=== PATIENT | male | born 1980 | race Caucasian/White ===

== ENCOUNTER 2019-01-03 19:10 | Emergency (ER) | payer SELFPAY ==
[~2019-01-03] VITALS: Ht 170.2 cm; Wt 72.6 kg
[2019-01-03 19:10] VITALS: BP 123/77
--- NOTE | 2019-01-03 22:35 | PHYS DOC ---
Past Medical History Past Medical History: No Pertinent History Past Surgical History: Other Additional Past Surgical Histo: R LEG BELOW KNEE AMPUTATION Alcohol Use: None Drug Use: None Adult General Chief Complaint Chief Complaint: LOWER EXT PAIN HPI HPI Patient is a 38 year old homeless male, who presents to the emergency department with complaints of redness to his right below the knee amputation stump. Patient states that he has been hitchhiking from [place] and has noticed that the skin on his stump is irritated and red. He denies any drainage from the site, fevers, numbness, tingling, or injury. He rates the pain a 10 out of 10 on the pain scale, there are no alleviating or exacerbating factors. Review of Systems Review of Systems Constitutional: Denies fever or chills [] Musculoskeletal: Denies back pain or joint pain [] Integument: See history of present illness Neurologic: Denies headache, focal weakness or sensory changes [] Allergies Allergies Allergies Coded Allergies Type Severity Reaction Last Updated Verified No Known Drug Allergies 01/03/19 No Physical Exam Physical Exam Constitutional: Well developed, well nourished, no acute distress, non-toxic appearance. [] HENT: Normocephalic, atraumatic, bilateral external ears normal, oropharynx moist, no oral exudates, nose normal. [] Eyes: conjunctiva normal, no discharge. [] Neck: Normal range of motion, no stridor. [] Cardiovascular:Heart rate regular rhythm Lungs & Thorax: Respirations even and unlabored, no retractions, no respiratory distress Skin: Warm, dry; erythema noted to right lower leg stump, consistent with cellulitis. 1+ edema, tender to palpation Extremities: R knee: No cyanosis, ROM intact; no deformity, no crepitus, Pt has R below knee amputation Neurologic: Alert and oriented X 3, no focal deficits noted. [] Psychologic: Affect normal, judgement normal, mood normal. [] Current Patient Data Vital Signs Vital Signs Date Time Temp Pulse Resp B/P (MAP) Pulse Ox O2 Delivery O2 Flow Rate FiO2 01/03/19 19:10 97.9 100 19 123/77 (92) 97 Room Air 97.9 EKG EKG [] Radiology/Procedures Radiology/Procedures [] Course & Med Decision Making Course & Med Decision Making Pertinent Labs and Imaging studies reviewed. (See chart for details) She is a 38-year-old transient male who presented to the emergency room with complaints of redness to his right lower leg at his below the knee amputation site. Patient reported is a medication was greater than 5 years ago. Discussed findings with patient advised of need to leave stump open to air for several days we'll prescribe Keflex for treatment of cellulitis. Provided patient with crutches to ambulate with as he is unable to wear his prosthetic at this time. Patient verbalized understanding of these instructions. However, he left prior to being given the prescription and written instructions, therefore he is leaving AGAINST MEDICAL ADVICE. [] Dragon Disclaimer Dragon Disclaimer This electronic medical record was generated, in whole or in part, using a voice recognition dictation system. Departure Departure Impression: Primary Impression: Left against medical advice Disposition: 07 AGAINST MEDICAL ADVICE Condition: STABLE Referrals: NO PCP (PCP) AICHA PATEL APRN Jan 03, 2019 22:35
== END 2019-01-03 20:50 | disposition left against medical advice (07) ==
LOC: ER 19:10
DX: T87.44 Infection of amputation stump, left lower extremity (principal); Z89.511 Acquired absence of right leg below knee; Z59.0 Homelessness
CPT/HCPCS: 99281; 99282; 99283